=== PATIENT | male | born 1990 ===

== ENCOUNTER 2019-07-12 20:51 | Emergency (ER) | payer OTHER ==
[~2019-07-12] VITALS: Ht 175.3 cm; Wt 86.4 kg
[2019-07-12 22:22] VITALS: BP 148/98
== END 2019-07-12 22:24 | disposition home or self-care (01) ==
LOC: ER 20:52
DX: Z04.1 Encounter for examination and observation following transport accident (principal); V49.88XA Car occupant (driver) (passenger) injured in other specified transport accidents, initial encounter; Y93.89 Activity, other specified; Y92.413 State road as the place of occurrence of the external cause; Y99.9 Unspecified external cause status
CPT/HCPCS: 99283